=== PATIENT | female | born 1940 | race Caucasian/White ===

== ENCOUNTER 2019-07-15 15:31 | Inpatient (IN) | payer MEDICARE, BC ==
[~2019-07-15] VITALS: Ht 154.9 cm; Wt 80.6 kg
--- NOTE | 2019-07-15 16:37 | NUR ---
ASSUMED CARE OF TP FOR LUNCH BREAK. PT SENT FROM [facility] AFTER SHE WAS SENT BY PMD FOR WEAKNESS AND IRREGULAR HEART RATE. PT REPORTS FEELING DIZZY WITH DRY HEAVING THIS AM. PT ON MONITOR AT A RATE OF 80'S-130'S. WAITING FOR ORDERS. NO RECORDS WERE RECEIVED FROM [facility] FOR TRANSPORT HERE.
[2019-07-15] MEDS ORDERED: OXYB5TAB10 PO (16:42)
[2019-07-15] MEDS ORDERED: VENL150C6 PO (16:42)
[2019-07-15] MEDS ORDERED: THYR60TA PO (16:42)
[2019-07-15] MEDS ORDERED: METO-99 PO (16:42)
[2019-07-15] MEDS ORDERED: SIMV40TA3 PO (16:42)
[2019-07-15] MEDS ORDERED: APIX5TAB PO (16:42)
[2019-07-15] MEDS ORDERED: SODIUM CHLORIDE FLUSH 10ML SYR IVF ONE (18:30)
[2019-07-15 18:33] LABS: BASOPHILS # (AUTO) 0.11 x10^3/uL (0-0.1); BASOPHILS % (AUTO) 1 % (0-1); EOSINOPHILS # (AUTO) 0.07 x10^3/uL (0-0.4); EOSINOPHILS % (AUTO) 1 % (1-7); LYMPHOCYTES # (AUTO) 1.71 x10^3/uL (1-3.4); LYMPHOCYTES % (AUTO) 20 % (22-44); MD NO; MEAN CORPUSCULAR HEMOGLOBIN 29.9 pg (27.0-34.8); MEAN CORPUSCULAR VOLUME 93.5 fL (80-100); MEAN PLATELET VOLUME 7.5 fL (7.4-10.4); MONOCYTES # (AUTO) 1.08 x10^3/uL (0.2-0.8); MONOCYTES % (AUTO) 12 % (2-9); NEUTROPHILS % (AUTO) 66 % (42-75); PLATELET COUNT 347 x10^3/uL (130-400); RED BLOOD COUNT 3.94 x10^6/uL (3.82-5.3); RED CELL DISTRIBUTION WIDTH 16.3 % (9.6-15.2)
[2019-07-15 18:39] LABS: ANION GAP 7 mmol/L (5-15); CALCIUM 8.6 mg/dL (8.5-10.1); CHLORIDE 100 mmol/L (98-107)
[2019-07-15 18:43] LABS: TROPONIN I 0.041 ng/mL (0.000-0.045)
[2019-07-15] MEDS ORDERED: FUROSEMIDE 20 MG/2 ML IV ONE (19:30)
[2019-07-15] MEDS ORDERED: ONDANSETRON ODT 4 MG PO PRN (19:30)
--- NOTE | 2019-07-15 20:37 | NUR ---
REPORT CALLED TO CHANTAL MORENO RN.
[2019-07-15] MEDS ORDERED: FUROSEMIDE 20 MG/2 ML ONE (20:39)
[2019-07-15] MEDS: SODIUM CHLORIDE FLUSH 10ML SYR IVF SCH (21:00)
[2019-07-15] MEDS ORDERED: METOPROLOL TARTRATE 100 MG TABLET PO SCH (21:00)
[2019-07-15 21:22] VITALS: BP 118/58
[2019-07-15] MEDS: SIMVASTATIN 40 MG TABLET PO SCH (21:44)
[2019-07-15] MEDS: OXYBUTYNIN CHLORIDE 5 MG TABLET PO SCH (21:44)
[2019-07-15] MEDS: APIXABAN 5 MG TABLET PO SCH (21:44)
[2019-07-16] VITALS (7 sets, daily range): BP systolic 109–145; BP diastolic 61–82
[2019-07-16 01:23] LABS: TROPONIN I 0.045 ng/mL (0.000-0.045)
[2019-07-16] MEDS ORDERED: THYROID 30 MG TABLET PO SCH (06:00)
[2019-07-16 06:46] LABS: BASOPHILS # (AUTO) 0.12 x10^3/uL (0-0.1); BASOPHILS % (AUTO) 1 % (0-1); EOSINOPHILS # (AUTO) 0.12 x10^3/uL (0-0.4); EOSINOPHILS % (AUTO) 1 % (1-7); LYMPHOCYTES # (AUTO) 1.47 x10^3/uL (1-3.4); LYMPHOCYTES % (AUTO) 17 % (22-44); MD NO; MEAN CORPUSCULAR HGB CONC 32.2 g/dL (32.4-35.8); MEAN CORPUSCULAR VOLUME 93.2 fL (80-100); MEAN PLATELET VOLUME 7.5 fL (7.4-10.4); MONOCYTES # (AUTO) 1.11 x10^3/uL (0.2-0.8); MONOCYTES % (AUTO) 12 % (2-9); NEUTROPHILS % (AUTO) 68 % (42-75); PLATELET COUNT 289 x10^3/uL (130-400); RED BLOOD COUNT 3.88 x10^6/uL (3.82-5.3); RED CELL DISTRIBUTION WIDTH 16.4 % (9.6-15.2)
[2019-07-16 06:57] LABS: ALANINE AMINOTRANSFERASE 181 U/L (12-78); ALBUMIN 2.8 g/dL (3.4-5.0); ANION GAP 8 mmol/L (5-15); CALCIUM 8.8 mg/dL (8.5-10.1); CHLORIDE 101 mmol/L (98-107)
[2019-07-16 07:01] LABS: ALKALINE PHOSPHATASE 135 U/L (45-117); BILIRUBIN,TOTAL 0.7 mg/dL (0.2-1.0); TOTAL PROTEIN 6.2 g/dL (6.4-8.2); TROPONIN I 0.041 ng/mL (0.000-0.045)
[2019-07-16] MEDS ORDERED: METOPROLOL TARTRATE 100 MG TABLET PO SCH ×2 (10:00→21:00)
[2019-07-16] MEDS: FUROSEMIDE 20 MG/2 ML IV SCH ×2 (10:17→16:12)
[2019-07-16] MEDS: VENLAFAXINE 75 MG CAP ER PO SCH (10:18)
[2019-07-16] MEDS: OXYBUTYNIN CHLORIDE 5 MG TABLET PO SCH ×2 (10:18→20:23)
[2019-07-16] MEDS: APIXABAN 5 MG TABLET PO SCH ×2 (10:19→20:23)
[2019-07-16] MEDS: SODIUM CHLORIDE FLUSH 10ML SYR IVF SCH ×2 (10:20→20:25)
[2019-07-16] MEDS: SENNA/DOCUSATE TABLET PO SCH (10:20)
[2019-07-16] MEDS: POTASSIUM CHLORIDE 20 MEQ TAB.ER.PRT PO SCH ×2 (10:57→16:14)
[2019-07-16] MEDS ORDERED: LABETALOL 5 MG/ML SYR. (IV ONLY) IVPush ONE (15:30)
[2019-07-16] MEDS: SIMVASTATIN 40 MG TABLET PO SCH (20:23)
[2019-07-16] MEDS: METOPROLOL SUCCINATE 100 MG TAB.ER.24H PO SCH (20:23)
[2019-07-17 01:19] VITALS: BP 153/82
[2019-07-17] MEDS: THYROID 30 MG TABLET PO SCH (05:10)
[2019-07-17 05:58] LABS: BASOPHILS # (AUTO) 0.03 x10^3/uL (0-0.1); BASOPHILS % (AUTO) 1 % (0-1); EOSINOPHILS # (AUTO) 0.15 x10^3/uL (0-0.4); EOSINOPHILS % (AUTO) 2 % (1-7); LYMPHOCYTES # (AUTO) 1.91 x10^3/uL (1-3.4); LYMPHOCYTES % (AUTO) 26 % (22-44); MD NO; MEAN CORPUSCULAR HEMOGLOBIN 29.8 pg (27.0-34.8); MEAN CORPUSCULAR HGB CONC 31.8 g/dL (32.4-35.8); MEAN CORPUSCULAR VOLUME 93.8 fL (80-100); MONOCYTES # (AUTO) 1.04 x10^3/uL (0.2-0.8); MONOCYTES % (AUTO) 14 % (2-9); NEUTROPHILS # (AUTO) 4.26 x10^3/uL (1.8-6.8); NEUTROPHILS % (AUTO) 58 % (42-75); PLATELET COUNT 313 x10^3/uL (130-400); RED BLOOD COUNT 3.85 x10^6/uL (3.82-5.3); RED CELL DISTRIBUTION WIDTH 16.4 % (9.6-15.2)
[2019-07-17 06:06] LABS: CHLORIDE 101 mmol/L (98-107)
[2019-07-17 06:10] LABS: ALBUMIN 2.9 g/dL (3.4-5.0); ANION GAP 7 mmol/L (5-15); CALCIUM 8.5 mg/dL (8.5-10.1); CREATININE 1.04 mg/dL (0.55-1.02)
[2019-07-17] MEDS ORDERED: POTASSIUM PHOSPHATE 44 MEQ in SODIUM CHLORIDE 0.9% 500 ML IV ONE (08:00)
[2019-07-17 08:03] VITALS: BP 139/91
[2019-07-17] MEDS: METOPROLOL SUCCINATE 100 MG TAB.ER.24H PO SCH ×2 (08:07→20:54)
[2019-07-17] MEDS: MULTIVITS,STRESS FORMULA 1 TABLET PO SCH (08:07)
[2019-07-17] MEDS: APIXABAN 5 MG TABLET PO SCH ×2 (08:07→20:54)
[2019-07-17] MEDS: FUROSEMIDE 20 MG/2 ML IV SCH ×2 (08:07→17:53)
[2019-07-17] MEDS: VENLAFAXINE 75 MG CAP ER PO SCH (08:07)
[2019-07-17] MEDS: SENNA/DOCUSATE TABLET PO SCH (08:07)
[2019-07-17] MEDS: POTASSIUM CHLORIDE 20 MEQ TAB.ER.PRT PO SCH ×2 (08:07→17:53)
[2019-07-17] MEDS: OXYBUTYNIN CHLORIDE 5 MG TABLET PO SCH ×2 (08:07→20:54)
[2019-07-17] MEDS: SODIUM CHLORIDE FLUSH 10ML SYR IVF SCH ×2 (08:08→20:55)
[2019-07-17] MEDS: ASCORBIC ACID 500 MG TABLET PO SCH ×2 (08:13→17:53)
[2019-07-17] MEDS: MAGNESIUM OXIDE 400 MG TABLET PO SCH ×2 (10:29→20:54)
[2019-07-17] MEDS: DILTIAZEM 30 MG TABLET PO SCH ×2 (11:47→20:54)
[2019-07-17 14:20] VITALS: BP 129/77
[2019-07-17] MEDS: CHOLECALCIFEROL 400 UNITS/ML ORAL SOL PO SCH (18:20)
[2019-07-17 19:37] VITALS: BP 126/94
[2019-07-17 20:53] VITALS: BP 127/86
[2019-07-17] MEDS: SIMVASTATIN 40 MG TABLET PO SCH (20:54)
[2019-07-17] MEDS: TRAZODONE 50MG TABLET PO SCH (23:32)
[2019-07-18 01:18] VITALS: BP 109/71
[2019-07-18 05:20] LABS: BASOPHILS # (AUTO) 0.04 x10^3/uL (0-0.1); BASOPHILS % (AUTO) 1 % (0-1); EOSINOPHILS % (AUTO) 1 % (1-7); LYMPHOCYTES # (AUTO) 1.68 x10^3/uL (1-3.4); LYMPHOCYTES % (AUTO) 21 % (22-44); MD NO; MEAN CORPUSCULAR HEMOGLOBIN 29.9 pg (27.0-34.8); MEAN CORPUSCULAR VOLUME 93.5 fL (80-100); MEAN PLATELET VOLUME 7.8 fL (7.4-10.4); MONOCYTES # (AUTO) 0.86 x10^3/uL (0.2-0.8); MONOCYTES % (AUTO) 11 % (2-9); NEUTROPHILS # (AUTO) 5.28 x10^3/uL (1.8-6.8); NEUTROPHILS % (AUTO) 66 % (42-75); PLATELET COUNT 284 x10^3/uL (130-400); RED BLOOD COUNT 3.79 x10^6/uL (3.82-5.3); RED CELL DISTRIBUTION WIDTH 16.9 % (9.6-15.2)
[2019-07-18 05:32] LABS: ANION GAP 4 mmol/L (5-15); CALCIUM 8.3 mg/dL (8.5-10.1); CHLORIDE 102 mmol/L (98-107); CREATININE 0.88 mg/dL (0.55-1.02)
[2019-07-18] MEDS: THYROID 30 MG TABLET PO SCH (05:55)
[2019-07-18] MEDS: POLYETHYLENE GLYCOL 17 GM PACKET PO PRN (06:02)
[2019-07-18 07:25] VITALS: BP 131/85
[2019-07-18] MEDS: MAGNESIUM OXIDE 400 MG TABLET PO SCH ×2 (08:21→21:43)
[2019-07-18] MEDS: OXYBUTYNIN CHLORIDE 5 MG TABLET PO SCH ×2 (08:21→21:44)
[2019-07-18] MEDS: MULTIVITS,STRESS FORMULA 1 TABLET PO SCH (08:21)
[2019-07-18] MEDS: METOPROLOL SUCCINATE 100 MG TAB.ER.24H PO SCH ×2 (08:22→21:43)
[2019-07-18] MEDS: POTASSIUM CHLORIDE 20 MEQ TAB.ER.PRT PO SCH ×2 (08:22→16:52)
[2019-07-18] MEDS: APIXABAN 5 MG TABLET PO SCH ×2 (08:22→21:44)
[2019-07-18] MEDS: SODIUM CHLORIDE FLUSH 10ML SYR IVF SCH ×2 (08:23→21:46)
[2019-07-18] MEDS: ASCORBIC ACID 500 MG TABLET PO SCH ×2 (08:23→16:52)
[2019-07-18] MEDS: DILTIAZEM 30 MG TABLET PO SCH ×2 (08:27→21:44)
[2019-07-18] MEDS: SENNA/DOCUSATE TABLET PO SCH (08:28)
[2019-07-18] MEDS: FUROSEMIDE 20 MG/2 ML IV SCH ×2 (08:30→16:51)
[2019-07-18] MEDS ORDERED: APAP/CODEINE 300/30MG TABLET ONE (10:08)
[2019-07-18] MEDS: APAP/CODEINE 300/30MG TABLET PO PRN (10:11)
[2019-07-18 14:08] VITALS: BP_SYST 120; BP_SYST 95; BP_DIAS 62; BP_DIAS 80
[2019-07-18] MEDS: ACETAMINOPHEN 325 MG TABLET PO PRN (16:51)
[2019-07-18] MEDS ORDERED: CHOLECALCIFEROL 400 UNITS TABLET ONE (16:57)
[2019-07-18] MEDS: CHOLECALCIFEROL 400 UNITS/ML ORAL SOL PO SCH (17:00)
[2019-07-18 19:29] VITALS: BP 118/90
[2019-07-18] MEDS: VENLAFAXINE 75 MG CAP ER PO SCH (21:44)
[2019-07-18] MEDS: TRAZODONE 50MG TABLET PO SCH (21:45)
[2019-07-18] MEDS: SIMVASTATIN 40 MG TABLET PO SCH (21:45)
[2019-07-19 00:29] VITALS: BP 120/76
[2019-07-19] MEDS: ACETAMINOPHEN 325 MG TABLET PO PRN (00:33)
[2019-07-19] MEDS: THYROID 30 MG TABLET PO SCH (06:11)
[2019-07-19 07:05] VITALS: BP 140/84
[2019-07-19] MEDS: FUROSEMIDE 20 MG/2 ML IV SCH ×2 (09:22→17:34)
[2019-07-19] MEDS: ASCORBIC ACID 500 MG TABLET PO SCH ×2 (09:22→17:34)
[2019-07-19] MEDS: DILTIAZEM 30 MG TABLET PO SCH ×2 (09:23→20:27)
[2019-07-19] MEDS: SENNA/DOCUSATE TABLET PO SCH (09:23)
[2019-07-19] MEDS: SODIUM CHLORIDE FLUSH 10ML SYR IVF SCH ×2 (09:23→20:28)
[2019-07-19] MEDS: OXYBUTYNIN CHLORIDE 5 MG TABLET PO SCH ×2 (09:23→20:27)
[2019-07-19] MEDS: VENLAFAXINE 75 MG CAP ER PO SCH (09:23)
[2019-07-19] MEDS: MAGNESIUM OXIDE 400 MG TABLET PO SCH ×2 (09:23→20:27)
[2019-07-19] MEDS: METOPROLOL SUCCINATE 100 MG TAB.ER.24H PO SCH ×2 (09:23→20:27)
[2019-07-19] MEDS: APIXABAN 5 MG TABLET PO SCH ×2 (09:23→20:26)
[2019-07-19] MEDS: MULTIVITS,STRESS FORMULA 1 TABLET PO SCH (09:24)
[2019-07-19] MEDS: BISACODYL 10 MG SUPP PR PRN (11:53)
[2019-07-19 12:11] VITALS: BP 119/82
[2019-07-19] MEDS: POLYETHYLENE GLYCOL 17 GM PACKET PO PRN (14:13)
[2019-07-19] MEDS: CHOLECALCIFEROL 400 UNITS TABLET PO SCH (17:34)
[2019-07-19] MEDS: TRAZODONE 50MG TABLET PO SCH (20:26)
[2019-07-19] MEDS: SIMVASTATIN 40 MG TABLET PO SCH (20:27)
[2019-07-19 20:49] VITALS: BP 143/92
[2019-07-20 01:48] VITALS: BP 109/75
[2019-07-20] MEDS: THYROID 30 MG TABLET PO SCH (05:51)
[2019-07-20 07:49] VITALS: BP 108/73
[2019-07-20] MEDS: SODIUM CHLORIDE FLUSH 10ML SYR IVF SCH ×2 (08:42→21:03)
[2019-07-20] MEDS: FUROSEMIDE 20 MG/2 ML IV SCH ×2 (08:42→17:07)
[2019-07-20] MEDS: DILTIAZEM 30 MG TABLET PO SCH ×2 (08:42→21:02)
[2019-07-20] MEDS: ASCORBIC ACID 500 MG TABLET PO SCH ×2 (08:42→17:07)
[2019-07-20] MEDS: METOPROLOL SUCCINATE 100 MG TAB.ER.24H PO SCH ×2 (08:43→21:02)
[2019-07-20] MEDS: VENLAFAXINE 75 MG CAP ER PO SCH (08:43)
[2019-07-20] MEDS: SENNA/DOCUSATE TABLET PO SCH (08:43)
[2019-07-20] MEDS: MULTIVITS,STRESS FORMULA 1 TABLET PO SCH (08:43)
[2019-07-20] MEDS: APIXABAN 5 MG TABLET PO SCH ×2 (08:43→21:02)
[2019-07-20] MEDS: OXYBUTYNIN CHLORIDE 5 MG TABLET PO SCH ×2 (08:43→21:02)
[2019-07-20 13:15] VITALS: BP 119/76
[2019-07-20] MEDS ORDERED: CHOLECALCIFEROL 400 UNITS TABLET PO SCH (16:30)
[2019-07-20] MEDS ORDERED: ASCO500T6 PO (16:37)
[2019-07-20] MEDS ORDERED: METO-95 PO (16:37)
[2019-07-20] MEDS ORDERED: DILT30TA27 PO (16:37)
[2019-07-20] MEDS ORDERED: CHOL400T2 PO (16:37)
[2019-07-20] MEDS ORDERED: FURO-93 PO (16:37)
[2019-07-20] MEDS: CHOLECALCIFEROL 400 UNITS TABLET PO SCH (17:07)
[2019-07-20] MEDS: BISACODYL 10 MG SUPP PR PRN (17:07)
[2019-07-20] MEDS: SIMVASTATIN 40 MG TABLET PO SCH (21:02)
[2019-07-20] MEDS: TRAZODONE 50MG TABLET PO SCH (21:02)
[2019-07-20 21:33] VITALS: BP 111/76
[2019-07-21 00:25] VITALS: BP 112/72
[2019-07-21] MEDS: APAP/CODEINE 300/30MG TABLET PO PRN (02:09)
[2019-07-21] MEDS: THYROID 30 MG TABLET PO SCH (06:24)
[2019-07-21 08:14] VITALS: BP 125/65
[2019-07-21] MEDS: METOPROLOL SUCCINATE 100 MG TAB.ER.24H PO SCH (08:49)
[2019-07-21] MEDS: DILTIAZEM 30 MG TABLET PO SCH (08:49)
[2019-07-21] MEDS: SENNA/DOCUSATE TABLET PO SCH (08:49)
[2019-07-21] MEDS: APIXABAN 5 MG TABLET PO SCH (08:50)
[2019-07-21] MEDS: OXYBUTYNIN CHLORIDE 5 MG TABLET PO SCH (08:50)
[2019-07-21] MEDS: VENLAFAXINE 75 MG CAP ER PO SCH (08:50)
[2019-07-21] MEDS: MULTIVITS,STRESS FORMULA 1 TABLET PO SCH (08:50)
[2019-07-21] MEDS: ASCORBIC ACID 500 MG TABLET PO SCH (08:51)
[2019-07-21] MEDS: FUROSEMIDE 20 MG/2 ML IV SCH ×2 (08:51→08:55)
[2019-07-21] MEDS: SODIUM CHLORIDE FLUSH 10ML SYR IVF SCH (08:52)
== END 2019-07-21 10:58 | disposition home or self-care (01) | DRG 291 ==
LOC: ED 19:37 → EDIP 20:52 → 5SO 21:19 → DCLOUNGE 07-21 10:21
PROVIDERS: ADMIT Internal Medicine; ATTEND Internal Medicine
DX: I11.0 Hypertensive heart disease with heart failure (principal); J96.01 Acute respiratory failure with hypoxia; D68.69 Other thrombophilia; E87.1 Hypo-osmolality and hyponatremia; I48.91 Unspecified atrial fibrillation; I50.33 Acute on chronic diastolic (congestive) heart failure; J44.9 Chronic obstructive pulmonary disease, unspecified; E03.9 Hypothyroidism, unspecified; E78.5 Hyperlipidemia, unspecified; E83.42 Hypomagnesemia; K59.00 Constipation, unspecified; M19.90 Unspecified osteoarthritis, unspecified site; Z66 Do not resuscitate; Z79.01 Long term (current) use of anticoagulants; Z79.899 Other long term (current) drug therapy; Z80.7 Family history of other malignant neoplasms of lymphoid, hematopoietic and related tissues; Z82.49 Family history of ischemic heart disease and other diseases of the circulatory system; Z85.3 Personal history of malignant neoplasm of breast; Z92.3 Personal history of irradiation
CPT/HCPCS: 36415; 71045; 80048; 80053; 80069; 82040; 83735; 83880; 84145; 84443; 84484; 85025; 93005; 93306; 96374; 99285; G0378; J1940; J7040